=== PATIENT | male | born 1995 | race Caucasian/White ===

== ENCOUNTER 2017-04-26 07:27 | Emergency (ER) | payer BC ==
[2017-04-26 07:45] VITALS: BP 125/58
[2017-04-26] MEDS ORDERED: Ondansetron ODT TAB* 4 MG PO ONE (07:54)
[2017-04-26] MEDS ORDERED: Acetaminophen TAB* 325 MG PO ONE (07:55)
--- NOTE | 2017-04-26 08:00 | UC ---
I, Oh,Melina, scribed for Karon Parsons MD on 04/26/17 at 0758 . HPI Febrile Illness - HPI Summary HPI Summary: This 22 y/o male presents to [facility] for fever since 2 days ago. 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 Pt had a match on Wednesday. He states he felt worse after the match. Since this time pt progessive weakness, sore throat, body aches. Pt reports vomiting which started yesterday morning and diarrhea which started last night. Pt reports very little to eat or drink in 48 hours second to nausea. Pt has taken Sudafed and Mucinex without improvement. None today. No sick contacts. No rash. PMHx/PSHx includes T&A in 2003. Pt driven to ED by friend Medication list reviewed and confirmed. Vital signs reviewed. 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 Taken: None - Allergy/Home Medications Allergies/Adverse Reactions: Allergies Allergy/AdvReac Type Severity Reaction Status Date / Time No Known Allergies Allergy Unverified 04/26/17 07:35 Home Medications: Home Medications Guaifenesin/Pseudo 600/60(NF) [Mucinex D 600/60 (NF)] 04/26/17 [History] Pseudoephedrine HCl [Sudafed 12 Hour] 04/26/17 [History Confirmed 04/26/17] PMH/Surg Hx/FS Hx/Imm Hx Previously Healthy: Yes - Pt denies any PMHx - Surgical History Surgery Procedure, Year, and Place: T& A 2003 Infectious Disease History: No Infectious Disease History: Denies: Traveled Outside the [place] in Last 30 Days - Family History Known Family History: Negative: Diabetes - Social History Occupation: Student Alcohol Use: None Substance Use Type: Reports: None Smoking Status (MU): Never Smoked Tobacco Review of Systems Constitutional: Fever, Fatigue Skin: Negative Eyes: Negative ENT: Sore Throat, Other - sinus discomfort Respiratory: Negative Cardiovascular: Negative Gastrointestinal: Abdominal Pain, Diarrhea, Other - nausea Genitourinary: Negative Motor: Negative Neurovascular: Negative Musculoskeletal: Negative Neurological: Negative Psychological: Negative All Other Systems Reviewed And Are Negative: Yes Physical Exam Triage Information Reviewed: Yes Appearance: Well-Appearing, No Pain Distress, Well-Nourished Vital Signs: Initial Vital Signs Temp 101.6 F 04/26/17 07:37 Pulse 102 04/26/17 07:37 Resp 20 04/26/17 07:37 BP 125/58 04/26/17 07:37 Pulse Ox 97 04/26/17 07:37 Vital Signs Reviewed: Yes Eye Exam: Normal Eyes: Negative: Conjunctiva Clear - injected b/l ENT: Positive: TMs normal - right ear - hematoma of pinna TM x2 visualized - no fluid, no erythema turbinates inflammed - no injection mm dry, pasty + PND, + diffuse erythema no exudate, Other: - lips dry Neck exam: Normal Neck: Positive: Supple, Nontender, No Lymphadenopathy Respiratory Exam: Normal Respiratory: Positive: Lungs clear, Normal breath sounds Cardiovascular Exam: Normal Cardiovascular: Positive: RRR, No Murmur, Other: - slightly delayed cbt Abdomen Description: Positive: Nontender - soft + diffuse tender lower quad L>R , No Organomegaly, Soft Bowel Sounds: Positive: Present Musculoskeletal Exam: Normal Musculoskeletal: Positive: Strength Intact Neurological Exam: Normal Neurological: Positive: Alert Psychological Exam: Normal Skin: Positive: Other - scabbed abrasions to frontal area from wrestling Course/Dx - Course Assessment/Plan: Pt presents with dehydration, body aches, nausea, vomiting after significant weight loss efforts for wrestling - Provider Notifications Discussed Patient Care [facility]: [facility] Time Discussed With Above Provider: 07:56 Discharge - Discharge Plan Condition: Stable Disposition: TRANS HIGHER L OF CARE FAC Patient Education Materials: Acute Nausea and Vomiting (ED), Dehydration (ED) Referrals: Sharath ALFARO,Fernando Simms [Primary Care Provider] - Additional Instructions: - Go directly to the emergency department at [facility]. They are expecting you at the emergency department - If it anticipated you will have IV fluids and lab work - Okay to sip water while driving to ED - it is recommended you wait to eat until you are further evaluated The documentation as recorded by the scribe, Arik,Sogita accurately reflects the service I personally performed and the decisions made by me, Karon Parsons MD.
== END 2017-04-26 08:05 | disposition short-term general hospital (02) ==
LOC: UCEAST 07:27
DX: R50.9 Fever, unspecified (principal); E86.0 Dehydration; J02.9 Acute pharyngitis, unspecified
CPT/HCPCS: 99212; A9270-GY; G0463

== ENCOUNTER 2017-04-26 08:20 | Emergency (ER) | payer BC ==
[2017-04-26] MEDS ORDERED: Ondansetron INJ* 2 MG/ML VIAL IV ONE (08:45)
[2017-04-26] MEDS: NS 0.9% 1000 ML* 2,000 ML IV ONE (08:56)
[2017-04-26] MEDS ORDERED: Ketorolac INJ* 30 MG/ML 1 ML VIAL IV PUSH ONE (09:08)
[2017-04-26 09:11] LABS: Add Diff/Slide Review? Slide Review Added; Comments Flag Yes; Hematocrit 42 % (42-52); Hemoglobin 14.4 g/dl (14.0-18.0); Mean Corpuscular HGB Conc 34 g/dl (31-36); Mean Corpuscular Hemoglobin 29 pg (27-31); Mean Corpuscular Volume 85 fL (80-94); Mean Platelet Volume 7 um3 (7.4-10.4); Red Blood Count 4.96 10^6/ul (4.0-5.4); Red Cell Distribution Width 13 % (10.5-15); White Blood Count 10.6 10^3/ul (3.5-10.8)
[2017-04-26 09:19] LABS: EBV Response NO
[2017-04-26 09:27] LABS: Albumin 4.1 g/dL (3.2-5.2); BUN/Creatinine Ratio 13.9 (8-20); Calcium 9.2 mg/dL (8.6-10.3); EGFR African American 102.3 (>60); EGFR Non-African American 79.5 (>60); Globulin 3.2 g/dL (2-4); Potassium 3.9 mmol/L (3.5-5.0); Total Bilirubin 0.6 mg/dL (0.2-1.0); Total Protein 7.3 g/dL (6.4-8.9)
[2017-04-26 09:37] LABS: Immature Granulocytes 12 % (0-9); Neutrophil % 68 % (38-83); Reactive Lymph % 4 % (0-6)
[2017-04-26 09:39] LABS: RBC Morphology Normal (Normal)
[2017-04-26 09:44] LABS: Mono Internal Control QC Line Present
[2017-04-26 09:45] LABS: Manual Entry Verification HAN0055
[2017-04-26] MEDS ORDERED: Iohexol 300* (CONTRAST) 10 ML SDV IV ONE (10:29)
--- NOTE | 2017-04-26 11:03 | RAD ---
HISTORY: Fever, voice change, evaluate for abscess COMPARISONS: None TECHNIQUE: Multiple contiguous axial CT scans were obtained of the neck after the administration of nonionic intravenous contrast, with coronal and sagittal multiplanar reformations. FINDINGS: BRAIN AND ORBITS: The visualized brain and orbits are normal. PARANASAL SINUSES: The visualized paranasal sinuses are clear. SALIVARY GLANDS: The parotid glands, submandibular glands, sublingual glands are normal. NASAL CAVITY/NASOPHARYNX: There is prominence of the adenoids ORAL CAVITY/OROPHARYNX: There is mucosal edema of the upper oropharynx without loculated fluid collection. LARYNGEAL APPARATUS/HYPOPHARYNX: The laryngeal apparatus and hypopharynx are normal. UPPER AIRWAY/UPPER ESOPHAGUS: The visualized upper airway and esophagus are normal. LUNG APICES: The lung apices are clear. THYROID GLAND: The thyroid gland is normal. LYMPH NODES: There are scattered small, less than 1 cm short axis, lymph nodes noted along the anterior and posterior cervical chain. There is no lymphadenopathy by size criteria. VASCULATURE: The vasculature is unremarkable. BONES AND SOFT TISSUES: No bone or soft tissue abnormalities are noted. OTHER: None. IMPRESSION: MUCOSAL EDEMA OF THE UPPER OROPHARYNX WITHOUT LOCULATED FLUID COLLECTION TO SUGGEST ABSCESS.
[2017-04-26 11:07] LABS: Urine Bacteria Absent (Absent); Urine Bilirubin Negative (Negative); Urine Glucose Negative (Negative); Urine Nitrite Negative (Negative)
[2017-04-26] MEDS ORDERED: Dexamethasone IV* 4 MG/ML 1 ML (4 MG) IV SLOW PU ONE (11:08)
[2017-04-26 11:29] VITALS: BP 135/56
--- NOTE | 2017-04-27 10:22 | ED ---
venancio Cedillo Timothy, scribed for Heath Funez MD on 04/26/17 at 0833 . Influenza-Like Illness - HPI Summary HPI Summary: Nolan Angel is a 22 yo male presenting to [facility] with fever of 101.8, chills, 8/10 sore throat, N/V 1x/D, myalgia, NELSON, photophobia, sinus pressure, dark colored urine, and general fatigue since 04/24/17, sent here by [facility]. He has not been sleeping well. He has not had a flu shot this year. He states that he had a weight cut 04/23/17 for his wrestling tournament. He states he was dehydrating himself and not eating much in order to cut the weight. He denies any cough or neck pain. He has self-medicated with mucinex and sudafed with no relief. His MHx includes tonsillecotmy and adenoidectomy 2003 - History of Current Complaint Chief Complaint: EDUpperRespComplaint Time Seen by Provider: 04/26/17 09:00 Hx Obtained From: Patient Onset/Duration: Gradual Onset, Lasting Days, Still Present Severity: Moderate Associated Signs & Symptoms: Fever, Sore Throat, Vomiting - Allergy/Home Medications Allergies/Adverse Reactions: Allergies Allergy/AdvReac Type Severity Reaction Status Date / Time No Known Allergies Allergy Unverified 04/26/17 07:35 PMH/Surg Hx/FS Hx/Imm Hx - Surgical History Surgery Procedure, Year, and Place: T& A 2003 Infectious Disease History: Denies: Traveled Outside the [place] in Last 30 Days - Family History Known Family History: Negative: Cardiac Disease, Hypertension, Diabetes - Social History Occupation: Student Alcohol Use: None Hx Substance Use: No Substance Use Type: Reports: None Smoking Status (MU): Never Smoked Tobacco Review of Systems Positive: Fever, Chills, Fatigue Positive: Photophobia. Negative: Erythema Positive: Sore Throat, Nasal Discharge Cardiovascular: Negative Negative: Chest Pain Respiratory: Negative Negative: Shortness Of Breath, Cough Positive: Vomiting, Diarrhea, Nausea. Negative: Abdominal Pain Positive: other - dark colored. Negative: dysuria, hematuria Positive: Myalgia. Negative: Edema - legs Skin: Negative Negative: Rash Neurological: Other - no dizziness Positive: Headache Psychological: Normal All Other Systems Reviewed And Are Negative: Yes Physical Exam - Summary Physical Exam Summary: Constitutional: Well-developed, Well-nourished, ill appearing, Alert. (-) Distressed. Skin: Warm, Dry HENT: Normocephalic; Atraumatic, nasal congestion, erythematous oropharynx with exudate. No sinus tenderness. Eyes: Conjunctiva normal Neck: Musculoskeletal ROM normal neck. (-) JVD, (-) Stridor, (-) Tracheal deviation Cardio: Rhythm regular, rate normal, Heart sounds normal; Intact distal pulses; The pedal pulses are 2+ and symmetric. Radial pulses are 2+ and symmetric. (-) Murmur Pulmonary/Chest wall: Effort normal. (-) Respiratory distress, (-) Wheezes, (-) Rales Abd: Soft, (+) mild epigastric tenderness to palpation, (-) Distension, (-) Guarding, (-) Rebound Musculoskeletal: (-) Edema Lymph: (-) Cervical adenopathy Neuro: Alert, Oriented x3 Psych: Mood and affect Normal Triage Information Reviewed: Yes Vital Signs On Initial Exam: Initial Vitals Temp Pulse Resp BP Pulse Ox 101.6 F 93 16 130/66 99 04/26/17 08:27 04/26/17 08:27 04/26/17 08:27 04/26/17 08:27 04/26/17 08:27 Vital Signs Reviewed: Yes Diagnostics - Vital Signs Vital Signs Temp Pulse Resp BP Pulse Ox 04/26/17 08:27 101.6 F 93 16 130/66 99 - Laboratory Result Diagrams: 04/26/17 08:50 04/26/17 08:50 Lab Statement: Any lab studies that have been ordered have been reviewed, and results considered in the medical decision making process. - CT neck CT Interpretation: No Acute Changes - IMPRESSION: MUCOSAL EDEMA OF THE UPPER OROPHARYNX WITHOUT LOCULATED FLUID COLLECTION TO SUGGEST ABSCESS. CT Interpretation Completed By: Radiologist Re-Evaluation - Re-Evaluation First Eval Re-Evaluation Time: 10:19 Change: Improved Comment: Reviewed lab studies with Pt. UA is pending at this time. Pt's friend is in room currently and states there has been a mild change in voice of Pt. Pt does have a mild hot-potato voice. Second Eval Re-Evaluation Time: 11:20 Change: Improved Comment: Discussed imaging study results with Pt. Flu Symptom Course/Dx - Course Assessment/Plan: Nolan Angel is a 22 yo male presenting to [facility] with fever of 101.8, chills, 8/10 sore throat, N/V/D, myalgia, NELSON, photophobia, sinus pressure, and general fatigue since 04/24/17, sent here by [facility]. Additionally, he has been dehydrating himself and not eating radha to a wrestling tournament in the past 2 days. His medication list has been reviewed this visit. In the ED course he received zofran for nausea control, toradol for pain management, and IV fluids. His group A rapid strep test is negative. His groups A & B rapid influenza tests are negative. His Monoscreen is also negative. His neck CT suggests mucosal edema of the upper oropharynx without suggestion of abscess. After clinical examinaiton and review of his lab and imaging studies, he will be discharged home with viral pharyngitis and viral syndrome with appropriate instructions. - Diagnoses Provider Diagnoses: Viral pharyngitis, Viral syndrome Discharge - Discharge Plan Condition: Stable Disposition: HOME Patient Education Materials: Pharyngitis (ED), Viral Syndrome (ED), Ibuprofen ( By mouth), Acetaminophen (By mouth) Forms: *Work Release Referrals: [facility] [Medical Doctor] - 1 Day Additional Instructions: Please follow up with the [facility] regarding your visit to the emergency department today. Return to the emergency department with any new or recurring symptoms. The documentation as recorded by the venancio guajardo Timothy accurately reflects the service I personally performed and the decisions made by me, Heath Funez MD.
== END 2017-04-26 11:40 | disposition home or self-care (01) ==
LOC: ED 08:20
DX: J02.9 Acute pharyngitis, unspecified (principal); R50.9 Fever, unspecified; R11.2 Nausea with vomiting, unspecified; R53.83 Other fatigue; R19.7 Diarrhea, unspecified
CPT/HCPCS: 36415; 70491; 80053; 81003; 81015; 82550; 83605; 83690; 85025; 86308; 87502; 87651; 96374; 99284; J1100; J1885; J2405; Q9967

== ENCOUNTER 2017-07-26 19:31 | Emergency (ER) | payer BC ==
[2017-07-26 20:20] LABS: Hematocrit 43 % (42-52); Hemoglobin 15.1 g/dl (14.0-18.0); Mean Corpuscular HGB Conc 35 g/dl (31-36); Mean Corpuscular Hemoglobin 30 pg (27-31); Mean Corpuscular Volume 85 fL (80-94); Mean Platelet Volume 7 um3 (7.4-10.4); Red Blood Count 5.12 10^6/ul (4.0-5.4); Red Cell Distribution Width 14 % (10.5-15); White Blood Count 10.7 10^3/ul (3.5-10.8)
[2017-07-26 20:27] LABS: Urine Bacteria Absent (Absent); Urine Bilirubin Negative (Negative); Urine Glucose Negative (Negative); Urine Nitrite Negative (Negative); Urine Sperm Present (Absent)
--- NOTE | 2017-07-26 20:31 | ED ---
Psychiatric Complaint - HPI Summary HPI Summary: 89 Pt [place] [employer] [place] [employer]. Per [employer] pt reports he wanted to end his life. Per [employer] pt family is finacial dependant on him. Per pt he had "a couple glasses of wine" today. Per [employer] pt was recently placed on prozac (2 weeks ago) from [place]. Denies taking x 2 days. Otherwise on Wellbutrin 100mg daily. Therapist is Ness at [place], but patient does not know her last name. He states counseling helps. He denies SI/HI currently but states he always has the feeling of "wanting to fall." Denies this is in attempt to committ suicide despite his extra stressors and hx of depression. He states he has ivania jumped before and not in attempt to hurt himself, and has been on top of the [employer] several times, again wanting to have the feeling of falling, and understands he would hurt himself or kill himself if this had happened. Denies drugs, but notes to some marijuana use. None today. Supportive family and friends network. He notes to hip pain at baseline, and requesting Ibuprofen. - History Of Current Complaint Chief Complaint: EDMentalHealth Time Seen by Provider: 07/26/17 19:39 Accompanied By: friend Hx Obtained From: Patient Onset/Duration: Gradual Onset Timing: Constant Severity Initially: Moderate Severity Currently: Moderate Character: Depressed, Frustrated Aggravating Factor(s): Recent Stress, Medication Non-compliance, Alcohol Use, Drug Use Alleviating Factor(s): Counseling Associated Signs And Symptoms: Positive: Negative Related History: Positive For: Prior Psychiatric Issues Has Suicidal: Reports: Thoughts, Demonstrates Gesture - jumping off objects, Has Prior Attempt(s) - same Ingestion History: Type/Name Of Drug - cannibus - Risk Factor(s) Completed Suicide Risk Factors: Male - Allergies/Home Medications Allergies/Adverse Reactions: Allergies Allergy/AdvReac Type Severity Reaction Status Date / Time No Known Allergies Allergy Unverified 04/26/17 07:35 Home Medications: Home Medications FLUoxetine CAP* [PROzac CAP*] 10 mg PO DAILY 07/26/17 [History Confirmed ] buPROPion TAB* [Wellbutrin TAB*] 200 mg PO QAM 07/26/17 [History Confirmed 07/26] PMH/Surg Hx/FS Hx/Imm Hx Previously Healthy: Yes - Surgical History Surgery Procedure, Year, and Place: T& A 2003 - Immunization History Hx Pertussis Vaccination: No Immunizations Up to Date: Unable to Obtain/Confirm Infectious Disease History: Denies: Traveled Outside the [place] in Last 30 Days - Family History Known Family History: Negative: Cardiac Disease, Hypertension, Diabetes - Social History Occupation: Unemployed, Student Lives: Alone Alcohol Use: Rare Hx Substance Use: No Substance Use Type: Reports: None Hx Tobacco Use: No Smoking Status (MU): Never Smoked Tobacco Review of Systems Constitutional: Negative Eyes: Negative Cardiovascular: Negative Respiratory: Negative Positive: no symptoms reported, see HPI Positive: Arthralgia - hip pain at baseline Positive: Anxious, Depressed All Other Systems Reviewed And Are Negative: Yes Physical Exam Triage Information Reviewed: Yes Vital Signs On Initial Exam: Initial Vitals Temp Pulse Resp BP Pulse Ox 97.3 F 89 20 132/66 98 07/26/17 19:35 07/26/17 19:35 07/26/17 19:35 07/26/17 19:35 07/26/17 19:35 Vital Signs Reviewed: Yes Appearance: Positive: No Pain Distress, Well-Nourished Skin: Positive: Warm, Skin Color Reflects Adequate Perfusion Head/Face: Positive: Normal Head/Face Inspection Eyes: Positive: EOMI, VANGIE, Conjunctiva Clear Neck: Positive: Supple, Nontender, No Lymphadenopathy Respiratory/Lung Sounds: Positive: Clear to Auscultation, Breath Sounds Present Cardiovascular: Positive: Normal, RRR, Pulses are Symmetrical in both Upper and Lower Extremities Musculoskeletal: Positive: Strength/ROM Intact Neurological: Positive: Speech Normal Psychiatric: Positive: Affect/Mood Appropriate, Depressed - x several months AVPU Assessment: Alert - Ritika Coma Scale Coma Scale Total: 15 Diagnostics - Vital Signs Vital Signs Temp Pulse Resp BP Pulse Ox 07/26/17 19:35 97.3 F 89 20 132/66 98 - Laboratory Lab Results: Lab Results 07/26/17 07/26/17 Range/Units 20:03 20:03 WBC 10.7 (3.5-10.8) 10^3/ul RBC 5.12 (4.0-5.4) 10^6/ul Hgb 15.1 (14.0-18.0) g/dl Hct 43 (42-52) % MCV 85 (80-94) fL MCH 30 (27-31) pg MCHC 35 (31-36) g/dl RDW 14 (10.5-15) % Plt Count 361 (150-450) 10^3/ul MPV 7 L (7.4-10.4) um3 Neut % (Auto) 64.9 (38-83) % Lymph % (Auto) 24.9 L (25-47) % Real % (Auto) 8.4 (1-9) % Eos % (Auto) 1.1 (0-6) % Baso % (Auto) 0.7 (0-2) % Absolute Neuts (auto) 6.9 (1.5-7.7) 10^3/ul Absolute Lymphs (auto) 2.7 (1.0-4.8) 10^3/ul Absolute Monos (auto) 0.9 H (0-0.8) 10^3/ul Absolute Eos (auto) 0.1 (0-0.6) 10^3/ul Absolute Basos (auto) 0.1 (0-0.2) 10^3/ul Absolute Nucleated RBC 0.01 10^3/ul Nucleated RBC % 0.1 Urine Color Yellow Urine Appearance Clear Urine pH 6.0 (5-9) Ur Specific [place] 1.029 (1.010-1.030) Urine Protein 1+(30 mg/dl) H (Negative) Urine Ketones Trace H (Negative) Urine Blood Negative (Negative) Urine Nitrate Negative (Negative) Urine Bilirubin Negative (Negative) Urine Urobilinogen Negative (Negative) Ur Leukocyte Esterase Trace H (Negative) Urine WBC (Auto) Trace(0-5/hpf) (Absent) Urine RBC (Auto) Absent (Absent) Urine Bacteria Absent (Absent) Urine Sperm Present H (Absent) Urine Glucose Negative (Negative) Result Diagrams: 07/26/17 20:03 07/26/17 20:03 Lab Statement: Any lab studies that have been ordered have been reviewed, and results considered in the medical decision making process. Course/Dx - Course Course Of Treatment: Patient found by police. See HPI. He is given ibuprofen for hip pain. Denies current SI/HI. 2 glasses of wine today, but denies cannibus use today. ETOH 86. He is cleared for MHU. - Differential Dx/Clinical Impression Differential Diagnosis/HQI/PQRI: Positive: Depression, Suicide Attempt, Suicidal Ideation, Suicidal Gesture Provider Diagnosis: Suicide gesture Discharge - Discharge Plan Condition: Stable Disposition: OTHER Discharge Disposition Comment: sent to flex
[2017-07-26 20:36] LABS: ALT 29 U/L (7-52); AST 40 U/L (13-39); Albumin 4.9 g/dL (3.2-5.2); Alkaline Phosphatase 75 U/L (34-104); Anion Gap 8 mmol/L (2-11); BUN/Creatinine Ratio 18.4 (8-20); Blood Urea Nitrogen 23 mg/dL (6-24); CO2 Carbon Dioxide 26 mmol/L (22-32); Calcium 9.8 mg/dL (8.6-10.3); Chloride 104 mmol/L (101-111); EGFR African American 92.9 (>60); EGFR Non-African American 72.2 (>60); Globulin 2.9 g/dL (2-4); Glucose 87 mg/dL (70-100); Potassium 4.2 mmol/L (3.5-5.0); Sodium 138 mmol/L (133-145); Total Protein 7.8 g/dL (6.4-8.9)
[2017-07-26 20:38] LABS: Benzodiazepine Urine Screen None Detected (None Detect)
[2017-07-26] MEDS ORDERED: Ibuprofen TAB* 600 MG PO ONE (20:42)
[2017-07-26 20:53] LABS: Acetaminophen < 15 mcg/mL; Alcohol 86 mg/dL (<10); Salicylate < 2.50 mg/dL (<30)
[2017-07-26 21:03] LABS: TSH (Thyroid Stimulating Horm) 1.89 mcIU/mL (0.34-5.60)
[2017-07-26 21:08] VITALS: BP 125/46
[2017-07-26] MEDS ORDERED: Acetaminophen TAB* 325 MG PO PRN (23:26)
[2017-07-26] MEDS ORDERED: Al Hydrox/Mg Hydrox/Simet LIQ* 30 ML UDC PO PRN (23:26)
[2017-07-27] MEDS ORDERED: buPROPion TAB* 100 MG PO SCH (09:00)
[2017-07-27] MEDS ORDERED: FLUoxetine CAP* 10 MG PO SCH (09:00)
[2017-07-27] MEDS ORDERED: Vitamin THERAPEUTIC TAB PO SCH (09:00)
[2017-07-27] MEDS ORDERED: Ibuprofen TAB* 600 MG PO ONE (09:12)
== END 2017-07-27 12:48 ==
LOC: ED 19:31
DX: R45.851 Suicidal ideations (principal); M25.559 Pain in unspecified hip
CPT/HCPCS: 36415; 80053; 80307; 80320; 80329; 81003; 81015; 84443; 85025; 87086; 99284; A9270-GY; G0480